=== PATIENT | male | born 1980 | race Caucasian/White ===

== ENCOUNTER 2018-07-30 17:15 | Emergency (ER) | payer OTHER ==
[~2018-07-30] VITALS: Ht 172.7 cm; Wt 65.8 kg
[2018-07-30 20:01] LABS: CLARITY,URINE CLEAR (CLEAR); COLOR,URINE YELLOW (YELLOW); KETONES,URINE NEGATIVE (NEGATIVE); LEUKOCYTE ESTERASE ,URINE NEGATIVE (NEGATIVE); NITRITE,URINE NEGATIVE (NEGATIVE); PROTEIN,URINE DIPSTICK NEGATIVE (NEGATIVE)
[2018-07-30 20:02] LABS: AMPHETAMINES SCREEN,URINE NEGATIVE (NEGATIVE); BENZODIAZEPINES SCREEN,URINE NEGATIVE (NEGATIVE); BILIRUBIN,URINE NEGATIVE (NEGATIVE); PHENCYCLIDINE SCREEN,URINE NEGATIVE (NEGATIVE); URINE UROBILINOGEN 1 mg/dL (0.2 - 1)
[2018-07-30 20:18] LABS: BACTERIA,URINE FEW /HPF; EPITHELIAL CELLS,URINE FEW /LPF; MUCUS,URINE MODERATE (RARE); RBC,URINE 0-5 /HPF (0-5)
[2018-07-30] MEDS ORDERED: MECLIZINE HCL 12.5 MG TAB PO STA (21:13)
[2018-07-30] MEDS ORDERED: MECLIZINE HCL 12.5 MG TAB ONE (21:18)
--- NOTE | 2018-07-30 21:33 | Diagnostic Imaging Report ---
Exam: Head CT without contrast History: Dizziness Comparison studies: None Technique: Axial images were obtained from the skull base to the vertex. Coronal and sagittal images reconstructed from the axial data. Dose modulation, iterative reconstruction, and/or weight based adjustment of the mA/kV was utilized to reduce the radiation dose to as low as reasonably achievable. Radiation dose: Total DLP: 921 mGy*cm. Estimated effective dose: DLP x 0.015 Intravenous contrast: None Findings: Scalp: No abnormalities. Bones: No fractures, blastic or lytic lesions. Brain sulci: Appropriate for age. Ventricles: Normal in size and configuration. No hydrocephalus. Extra-axial spaces: No masses, no fluid collection. Parenchyma: No abnormal densities. No masses, acute hemorrhage, acute or chronic vascular insults. Sellar/suprasellar region: No abnormalities. Craniocervical junction: Patent foramen magnum. No Chiari one malformation. Included paranasal sinuses: Clear. Middle ear mastoid cavities: Clear. IMPRESSION: No abnormalities. Signed by: Dr. Meo Galvan M.D. on 07/30/2018 9:30 PM
== END 2018-07-30 22:56 | disposition home or self-care (01) ==
LOC: ER 17:15
DX: H81.11 Benign paroxysmal vertigo, right ear (principal); R00.1 Bradycardia, unspecified
CPT/HCPCS: 70450; 80307; 81001; 93005; 99283; J8597